=== PATIENT | female | born 1965 | race African-American/Black ===

== ENCOUNTER 2019-07-21 19:17 | Emergency (ER) | payer OTHER ==
[~2019-07-21 19:17] MED LIST: ACET-2247 PO; ASPI-728 PO; AUD NEB; BISA-151 PR; DSS100 PO; FERR-89 PO; INSNOV SQ; INSU100V12 SQ; IPRNEB IH; LISI-661 PO; METF-960 PO; MULT1TAB70 PO; OXYC-165 PO; OXYC-530 PO; PANT40TA25 PO; TRAM50TA4 PO
== END 2019-07-21 20:00 | disposition left against medical advice (07) ==
LOC: EMS 19:20
DX: R42 Dizziness and giddiness (principal); Z53.21 Procedure and treatment not carried out due to patient leaving prior to being seen by health care provider

== ENCOUNTER 2019-12-20 13:59 | Emergency (ER) | payer OTHER ==
[~2019-12-20] VITALS: Ht 170.2 cm; Wt 79.5 kg
[~2019-12-20 13:59] MED LIST changes: +MULT-660 PO; -MULT1TAB70 PO; +PANT-31 PO; -PANT40TA25 PO
[2019-12-20 14:30] VITALS: BP 153/95
[2019-12-20] MEDS ORDERED: SULFAMETHOX/TRIMETH DS 800-160 MG/TABLET PO ONE (15:00)
[2019-12-20] MEDS ORDERED: IBUPROFEN 400 MG TABLET PO ONE (15:00)
[2019-12-20] MEDS ORDERED: CEPHALEXIN MONOHYDRATE 500 MG CAPSULE PO ONE (15:00)
== END 2019-12-20 15:52 | disposition home or self-care (01) ==
LOC: EMS 14:03
DX: L03.314 Cellulitis of groin (principal); L02.214 Cutaneous abscess of groin; F17.210 Nicotine dependence, cigarettes, uncomplicated; E11.9 Type 2 diabetes mellitus without complications; I10 Essential (primary) hypertension; F19.90 Other psychoactive substance use, unspecified, uncomplicated; Z79.82 Long term (current) use of aspirin; Z79.899 Other long term (current) drug therapy; Z79.84 Long term (current) use of oral hypoglycemic drugs; Z79.4 Long term (current) use of insulin; Z88.5 Allergy status to narcotic agent; Z91.018 Allergy to other foods
CPT/HCPCS: 99406

== ENCOUNTER 2024-04-28 10:49 | Emergency (ER) | payer OTHER ==
[~2024-04-28] VITALS: Ht 167.6 cm; Wt 71.8 kg
[~2024-04-28 10:49] MED LIST changes: +ALBU2.5V39 NEB; +ASPI-1450 PO; -ASPI-728 PO; -AUD NEB; -FERR-89 PO; +FERR325T27 PO; +IPRA0.2S49 IH; -IPRNEB IH; -LISI-661 PO; +LISI-893 PO; +METF-1211 PO; -METF-960 PO; -OXYC-530 PO; +OXYC1TAB6 PO; -TRAM50TA4 PO; +TRAM50TA5 PO
[2024-04-28 11:00] VITALS: TEMP 98.4
[2024-04-28] MEDS: SODIUM CHLORIDE 0.9% 1,000 ML IV ONE (11:44)
[2024-04-28 11:55] LABS: BASOPHILS % (AUTO) 0.9 % (0.0-2.0); EOSINOPHILS % (AUTO) 10.9 % (1.0-6.0); HEMATOCRIT 29.8 % (36-46); LYMPHOCYTES # (AUTO) 2.6 K/uL (1.0-4.8); LYMPHOCYTES % (AUTO) 27.8 % (22.0-44.0); MEAN CORPUSCULAR HEMOGLOBIN 30.1 pg (26.0-34.0); MEAN CORPUSCULAR HGB CONC 33.6 G/dL (31.0-37.0); MEAN CORPUSCULAR VOLUME 90 fL (80-100); MONOCYTES # (AUTO) 0.6 K/uL (0.1-1.0); NEUTROPHILS % (AUTO) 54.4 % (40.0-70.0); PLATELET COUNT (AUTO) 424 K/uL (150-450); RED BLOOD CELL COUNT(AUTO) 3.32 MIL/uL (4.00-5.20); RED CELL DISTRIBUTION WIDTH 13.4 % (11.5-14.5); WHITE BLOOD COUNT (AUTO) 9.2 K/uL (4.5-11.0)
[2024-04-28 12:07] LABS: COVID AG,FIA SOURCE NASAL SWAB
[2024-04-28 12:10] LABS: ALBUMIN 2.9 g/dL (3.4-5.0); BILIRUBIN,TOTAL 0.3 mg/dL (0.1-1.0); CALCIUM, TOTAL 8.6 mg/dL (8.8-10.5); CREATININE 1.25 mg/dL (0.60-1.30); POTASSIUM 4.1 mmol/L (3.5-5.1)
[2024-04-28 12:50] LABS: SARS-COV2 (COVID) ANTIGEN,FIA Negative (Negative)
[2024-04-28 12:51] LABS: INFLUENZA TYPE A NEGATIVE FOR TYPE A (NEGATIVE); INFLUENZA TYPE B NEGATIVE FOR TYPE B (NEGATIVE)
[2024-04-28] MEDS: INSULIN REGULAR, HUMAN 100 UNITS/ML IVP ONE (13:29)
[2024-04-28 14:10] VITALS: BP 125/65; PULSE 91; RESP 18; O2SAT 99
[2024-04-28 14:36] LABS: GLUCOMETER DEV NAME(LOC) ERT.6; GLUCOSE,POINT OF CARE 393 MG/DL (70-110)
[2024-04-28 14:36] LABS: GLUCOMETER DEV NAME(LOC) ERT.6; GLUCOSE,POINT OF CARE 300 MG/DL (70-110)
== END 2024-04-28 14:30 | disposition home or self-care (01) ==
LOC: EMS 11:04
DX: S60.443A External constriction of left middle finger, initial encounter (principal); I10 Essential (primary) hypertension; J40 Bronchitis, not specified as acute or chronic; E11.65 Type 2 diabetes mellitus with hyperglycemia; F17.210 Nicotine dependence, cigarettes, uncomplicated; F15.10 Other stimulant abuse, uncomplicated; Z88.5 Allergy status to narcotic agent; Z79.82 Long term (current) use of aspirin; Z79.899 Other long term (current) drug therapy; Z20.822 Contact with and (suspected) exposure to COVID-19; W49.04XA Ring or other jewelry causing external constriction, initial encounter; Y93.89 Activity, other specified; Y92.89 Other specified places as the place of occurrence of the external cause; Y99.8 Other external cause status
CPT/HCPCS: 99284; 96374; 71045; 96361; 87426; 80053; 82962; 85025; 87804; 36415; J1815; J7030